=== PATIENT | male | born 1985 | race Caucasian/White ===

== ENCOUNTER 2018-05-14 13:09 | Emergency (ER) | payer OTHER ==
[~2018-05-14] VITALS: Ht 167.6 cm; Wt 83.9 kg
[2018-05-14] MEDS ORDERED: ERYTHROMYCIN E3.5 G3 OPHTHALMIC (14:24)
[2018-05-14] MEDS ORDERED: MOXIFLOXACIN3 ML OPHTHALMIC (14:24)
[2018-05-14] MEDS ORDERED: NORCO 5-325 TA1 EACH PO (14:32)
[2018-05-14 14:52] VITALS: BP 115/77
== END 2018-05-14 14:53 | disposition home or self-care (01) ==
LOC: M.ERS 13:09
DX: T26.61XA Corrosion of cornea and conjunctival sac, right eye, initial encounter (principal); Y93.89 Activity, other specified; Y92.89 Other specified places as the place of occurrence of the external cause; Y99.8 Other external cause status